=== PATIENT | male | born 1985 | race Caucasian/White ===

== ENCOUNTER 2016-08-03 17:37 | Emergency (ER) | payer OTHER ==
[2016-08-03] MEDS ORDERED: SODIUM CHLORIDE 0.9% 500 ML IV STA ×2 (17:48→19:33)
[2016-08-03] MEDS ORDERED: SODIUM CHLORIDE 0.9% 1,000 ML IV STA ×2 (17:48)
[2016-08-03] MEDS ORDERED: RX INFO: IV CONTRAST WAS GIVEN 1 EACH MISC MISCELLANE PRN (17:49)
[2016-08-03 17:58] LABS: Glucose,Whole Blood 105 mg/dL (75-99)
[2016-08-03 18:01] VITALS: BP 136/79; PULSE 99; RESP 18; TEMP 98.5
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
[2016-08-03 18:37] LABS: Basophils # (A) 0.2 k/uL (0-0.2); Basophils % (A) 2 %; CH 33.1; CHCM 34.8; Eosinophils # (A) 0.1 k/uL (0-0.7); Eosinophils % (A) 1 %; HCT 47.9 % (39.0-53.0); HDW 2.39; HGB 16.1 gm/dL (13.0-17.5); Luc # (Auto) 0.24; Luc % (Auto) 2; Lymphocytes # (A) 4.1 k/uL (1.0-4.8); Lymphocytes % (A) 36 %; MCH 32.1 pg (25.0-35.0); MCHC 33.6 g/dL (31.0-37.0); MCV 95.4 fL (80.0-100.0); Mean Platelet Volume 7.8; Monocytes # (A) 0.7 k/uL (0-1.0); Monocytes % (A) 6 %; Neutrophils # (A) 5.9 k/uL (1.3-7.7); Neutrophils % (A) 53 %; RBC 5.02 m/uL (4.30-5.90); RDW 13.2 % (11.5-15.5); WBC 11.2 k/uL (3.8-10.6); WBC (Perox) 11.06
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
[2016-08-03 18:40] LABS: ALT 31 U/L (21-72); AST 28 U/L (17-59); Alkaline Phosphatase 67 U/L (38-126); Anion Gap 17 mmol/L; Blood Urea Nitrogen 10 mg/dL (9-20); Calcium 10.1 mg/dL (8.4-10.2); Carbon Dioxide 21 mmol/L (22-30); Chloride 108 mmol/L (98-107); Glucose 98 mg/dL (74-99); Non-African American GFR(MDRD) >60 (>60 ml/min/1.73 sqM); Sodium 146 mmol/L (137-145); Total Bilirubin 0.5 mg/dL (0.2-1.3); Total Protein 7.9 g/dL (6.3-8.2)
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
[2016-08-03 18:46] LABS: Creatine Kinase 189 U/L (55-170)
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
[2016-08-03 18:50] LABS: Alcohol 162 mg/dL
[2016-08-03 18:51] LABS: Appearance,Urine Clear (Clear); Bilirubin,Urine Negative (Negative); Glucose,Urine (UA) Negative (Negative); Ketones,Urine Negative (Negative); Leukocyte Esterase,Urine Negative (Negative); Nitrite,Urine Negative (Negative); PH, Urine 6.5 (5.0-8.0); Partial Thromboplastin Time 22.9 sec (22.0-30.0); Particle Count 82; Protein,Urine Negative (Negative); Prothrombin Time 10.4 sec (9.0-12.0); UA Billing (MACRO vs. MICRO) MICRO; Urobilinogen,Urine <2.0 mg/dL (<2.0)
[2016-08-03 18:58] LABS: Creatine Kinase MB 1.3 ng/mL (0.0-2.4); Troponin I <0.012 ng/mL (0.000-0.034)
[2016-08-03 18:59] LABS: Specific Gravity,Urine 1.001 (1.001-1.035)
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
[2016-08-03] MEDS ORDERED: MORPHINE SULFATE 4 MG/ML SYRINGE IVP STA (19:33)
[2016-08-03] MEDS ORDERED: DIPH,PERTUS(ACELL)TETVAC-LF 0.5 ML VIAL IM ONE (19:33)
[2016-08-03] MEDS ORDERED: KETOROLAC 30 MG/ML 1 ML VIAL IVP STA (19:33)
[2016-08-03] MEDS ORDERED: ceFAZolin 1,000 MG in DEXTROSE/WATER 1 50ML.BAG IVPB STA (19:33)
--- NOTE | 2016-08-03 19:55 | XR ---
EXAMINATION TYPE: XR wrist complete BILATERAL DATE OF EXAM: 08/03/2016 7:14 PM COMPARISON: NONE HISTORY: Bilateral wrist pain TECHNIQUE: 3 views FINDINGS: I see no fracture nor dislocation. Carpal bones are intact. IMPRESSION: Negative right wrist exam.
== END 2016-08-03 20:50 | disposition home or self-care (01) ==
LOC: EC 17:37
DX: S09.90XA Unspecified injury of head, initial encounter (principal); T14.8 Other injury of unspecified body region; T14.90 Injury, unspecified; S60.519A Abrasion of unspecified hand, initial encounter; V47.5XXA Car driver injured in collision with fixed or stationary object in traffic accident, initial encounter; F10.129 Alcohol abuse with intoxication, unspecified; F17.200 Nicotine dependence, unspecified, uncomplicated; F31.9 Bipolar disorder, unspecified; Z88.0 Allergy status to penicillin; Z91.040 Latex allergy status; Z88.6 Allergy status to analgesic agent; Z91.010 Allergy to peanuts; Z79.899 Other long term (current) drug therapy; Z23 Encounter for immunization
CPT/HCPCS: 99284; 96365; 96375 ×2; 96361 ×2; 36415; 93005; 86900; 86901; 80053; 82550; 82553; 84484; 85025; 85610; 85730; 86850; 81001; 80306; 80320; 71010; 73110; 72170; 72125; 70486; 70450; 71260; 74177; 90715; J2270; J1885; Q9967; J0690; 90471

== ENCOUNTER 2016-09-19 10:47 | Emergency (ER) | payer OTHER ==
[2016-09-19 10:53] VITALS: BP 133/87; PULSE 83; RESP 20; TEMP 98
--- NOTE | 2016-09-19 11:09 | ED ---
ENT HPI - General Chief complaint: ENT Stated complaint: throat pain Time Seen by Provider: 09/19/16 10:55 Source: patient, RN notes reviewed Mode of arrival: ambulatory Limitations: no limitations - History of Present Illness Initial comments: 31-year-old male presents emergency Department with chief complaint of sore throat. Patient states that this started last 4 days. Patient states that he' s had multiple contacts with strep and his has mono and strep. Patient states she's had on-and-off fevers chills. Patient also complains of rash to his right nostril. Patient states it's similar to the rash that his son was diagnosed with a staph and strep infection. Patient denies headache, dizziness , ear pain, fatigue, abdominal pain. - Related Data Home Medications Medication Instructions Recorded Confirmed Dextroamphetamine/Amphetamine 20 mg PO QAM 07/02/15 08/03/16 [Adderall] Montelukast [Singulair] 10 mg PO HS 07/02/15 08/03/16 traMADol HCl [Ultram] 100 mg PO BID 07/02/15 08/03/16 Albuterol Inhaler [Ventolin Hfa 2 puff INHALATION RT-Q4H PRN 08/03/16 08/03/16 Inhaler] Divalproex Sodium [Depakote] 125 mg PO DAILY 08/03/16 08/03/16 Previous Rx's Medication Instructions Recorded Cephalexin [Keflex] 500 mg PO Q8HR #100 cap 08/03/16 HYDROcodone/APAP 5-325MG [[place] 1 tab PO Q6HR PRN #30 tab 08/03/16 5-325] Naproxen [Naprosyn] 500 mg PO Q12HR PRN #30 tab 08/03/16 Azithromycin [Zithromax Z-pack] 0 mg PO DIRECTED #1 pack 09/19/16 Mupirocin 2% Oint [Bactroban 2% 1 applic TOPICAL TID #22 gm 09/19/16 Oint] Allergies Allergy/AdvReac Type Severity Reaction Status Date / Time aspirin Allergy Rash/Hives Verified 09/19/16 10:53 latex Allergy Rash/Hives Verified 09/19/16 10:53 peanut Allergy Anaphylaxis Verified 09/19/16 10:53 Penicillins Allergy Unknown Verified 09/19/16 10:53 Childhood Review of Systems ROS Statement: Those systems with pertinent positive or pertinent negative responses have been documented in the HPI. ROS Other: All systems not noted in ROS Statement are negative. Past Medical History Additional Past Medical History / Comment(s): back pain History of Any Multi-Drug Resistant Organisms: None Reported Past Surgical History: No Surgical Hx Reported Past Psychological History: Anxiety, Bipolar, Depression Smoking Status: Current every day smoker Past Alcohol Use History: Occasional Past Drug Use History: None Reported General Exam Limitations: no limitations General appearance: alert, in no apparent distress Head exam: Present: atraumatic, normocephalic, normal inspection Eye exam: Present: normal appearance, PERRL, EOMI. Absent: scleral icterus, conjunctival injection, periorbital swelling ENT exam: Present: mucous membranes moist, TM's normal bilaterally, normal external ear exam. Absent: normal exam (Right nostril there is erythematous sores noted), normal oropharynx (Erythematous posterior pharynx) Neck exam: Present: normal inspection, full ROM, lymphadenopathy. Absent: tenderness, meningismus Respiratory exam: Present: normal lung sounds bilaterally. Absent: respiratory distress, wheezes, rales, rhonchi, stridor Cardiovascular Exam: Present: regular rate, normal rhythm, normal heart sounds. Absent: systolic murmur, diastolic murmur, rubs, gallop, clicks Course Vital Signs 09/19/16 10:51 Temperature 98 F Pulse Rate 83 Respiratory 20 Rate Blood Pressure 133/87 O2 Sat by Pulse 100 Oximetry Medical Decision Making - Medical Decision Making 31-year-old male present emergency department with chief complaint of sore throat. Patient was treated for presumed strep. Patient placed on azithromycin as an ALLERGY to penicillin. Patient given Bactroban for his right nostril staph infection. Disposition Clinical Impression: Impetigo, Staphylococcus infection of nose, Strep pharyngitis Disposition: HOME SELF-CARE Condition: Stable Instructions: Strep Throat (ED) Additional Instructions: Please return to the Emergency Department if symptoms worsen or any other concerns. Prescriptions: Azithromycin [Zithromax Z-pack] 0 mg PO DIRECTED #1 pack Mupirocin 2% Oint [Bactroban 2% Oint] 1 applic TOPICAL TID #22 gm Referrals: Nonstaff,Physician [Primary Care Provider] - 1-2 days Time of Disposition: 11:08
== END 2016-09-19 11:33 | disposition home or self-care (01) ==
LOC: EC 10:47
DX: J02.0 Streptococcal pharyngitis (principal); L01.00 Impetigo, unspecified; B95.8 Unspecified staphylococcus as the cause of diseases classified elsewhere; F31.9 Bipolar disorder, unspecified; F17.200 Nicotine dependence, unspecified, uncomplicated; Z79.891 Long term (current) use of opiate analgesic; Z79.899 Other long term (current) drug therapy; Z88.0 Allergy status to penicillin; Z88.6 Allergy status to analgesic agent; Z91.010 Allergy to peanuts; Z91.040 Latex allergy status
CPT/HCPCS: 36415; 86308; 99282